=== PATIENT | female | born 1945 | race Caucasian/White ===

== ENCOUNTER → 2025-05-26 10:23 | Outpatient (REF) | payer MEDICARE, OTHER, SELFPAY ==
[2025-05-26 12:00] LABS: Hematocrit 34.3 % (37.0-47.0); Hemoglobin 11.6 g/dL (12.0-16.0); Mean Corp Hgb Conc. 33.8 g/dL (33.0-37.0); Mean Corpuscular Volume 89.3 fL (81.0-99.0); Nucleated Red Blood Cells % 0 %; Platelet Count 239 10^3/uL (130-400); Red Cell Dist. Width 13.0 % (11.5-14.5)
[2025-05-26 12:15] LABS: INR 0.96; PT 13.3 Sec (11.4-14.6)
[2025-05-26 12:32] LABS: ALT (SGPT) 260 U/L (0-35); AST (SGOT) 65 U/L (14-36); Albumin 4.3 g/dl (3.5-5.0); Alkaline Phosphatase 180 U/L (38-126); Blood Urea Nitrogen 26 mg/dl (7-17); Calcium 9.1 mg/dl (8.4-10.2); Carbon Dioxide 28 mmol/L (22-30); Chloride 97 mmol/L (98-107); Glucose 88 mg/dl (70-99); Magnesium 2.0 mg/dl (1.6-2.3); Potassium 5.1 mmol/L (3.5-5.1); Sodium 132 mmol/L (135-145); Total Protein 7.2 g/dl (6.3-8.2); eGFR > 60.00
== END ==
LOC: SDSPAT 10:23
PROVIDERS: ATTENDING PHYSICIAN Internal Medicine Cardiovascular Disease; FAMILY PHYSICIAN Nurse Practitioner Adult Health; OTHER PHYSICIAN Internal Medicine Cardiovascular Disease
DX: I48.0 Paroxysmal atrial fibrillation (principal)
CPT/HCPCS: 36415; 75572; 80053; 83735; 85025; 85610; 86850; 86900; 86901; 93005; Q9967

== ENCOUNTER → 2025-06-08 14:14 | Outpatient (REF) | payer MEDICARE, OTHER, SELFPAY ==
[2025-06-08 16:44] LABS: ALT (SGPT) 126 U/L (0-35); AST (SGOT) 78 U/L (14-36); Albumin 4.6 g/dl (3.5-5.0); Alkaline Phosphatase 118 U/L (38-126); Total Protein 7.5 g/dl (6.3-8.2)
== END ==
LOC: REG 14:14
PROVIDERS: ATTENDING PHYSICIAN Physician Assistant; FAMILY PHYSICIAN Nurse Practitioner Adult Health; OTHER PHYSICIAN Internal Medicine Cardiovascular Disease
DX: R94.5 Abnormal results of liver function studies (principal)
CPT/HCPCS: 36415; 80076

== ENCOUNTER 2025-06-15 06:07 | Day surgery (SDC) | payer MEDICARE, OTHER, SELFPAY ==
[2025-05-26 10:38] VITALS: BMI 30.3
[2025-06-15] VITALS (13 sets, daily range): BP systolic 127–168; BP diastolic 50–75
[2025-06-15 07:23] LABS: ALT (SGPT) 117 U/L (0-35); AST (SGOT) 50 U/L (14-36); Albumin 4.2 g/dl (3.5-5.0); Alkaline Phosphatase 132 U/L (38-126); Blood Urea Nitrogen 14 mg/dl (7-17); Calcium 9.0 mg/dl (8.4-10.2); Carbon Dioxide 28 mmol/L (22-30); Chloride 100 mmol/L (98-107); Estimated Creatinine Clearance 62 ml/min; Glucose 91 mg/dl (70-99); Potassium 4.0 mmol/L (3.5-5.1); Sodium 132 mmol/L (135-145); Total Protein 7.0 g/dl (6.3-8.2); eGFR > 60.00
[2025-06-15 09:10] LABS: ACT-LR - POC 221 Seconds (116-155)
[2025-06-15 09:24] LABS: ACT-LR - POC 269 Seconds (116-155)
--- NOTE | 2025-06-15 09:39 | ITS.CL.ABL ---
Agency Appointments Supervisor - Ablation
Ablation
Procedure Report:
ELECTROPHYSIOLOGY ABLATION STUDY
DATE:: June 15, 2025�����������������������������REFERRING: Dr. Baez
INDICATION: Paroxysmal supraventricular tachycardia in the form of atrial fibrillation.��As above
HISTORY: See H and P.��As above
ANTIARRHYTHMIC DRUG: Amiodarone
PRE-PROCEDURE CHEN: No intracardiac thrombus
PRESENTING RHYTHM: Sinus rhythm
'TIME-OUT':��called and confirmed.
SEDATION/ANESTHESIA:��provided via the anesthesia department using general anesthesia (LMA).
INTRAVENOUS/ARTERIAL ACCESS:
Right femoral venous -8Fr
Left femoral venous - 8 Fr, 6 Fr
[id number] sutures bilaterally to right femoral and left femoral venous access
Ultrasound guidance for bilateral femoral vein access was utilized by me to obtain access with demonstration of normal anatomy
CHADS-VASC Score:
HAS-Bled Score
PROCEDURE:
1.��A decapolar CS catheter was placed within the CS for mapping and pacing.��This was also used as the reference catheter for the 3-D map. There is extremely tortuous IVC RA junction which required ice navigation of catheters into the right atrium
otherwise once that was established transseptal puncture and navigation of the left atrium was relatively straightforward. Ultimately a straight Amplatz wire in front of the [address] sheath under ice guidance achieved right atrial access and was
exchanged for the RF wire after the Amplatz and [address] sheath were placed in the SVC/RA junction.
2. The intracardiac ultrasound catheter was positioned in the RA to identify the FO for targeting of transseptal puncture, assist��in identification of the pulmonary vein ostia, monitoring pre and post ablation pulmonary vein flow velocities,
monitoring for 'bubble' formation during RF application as a sign of thermal injury,��and to monitor for pericardial effusion during mapping and ablation procedure.���Left atrial size, LV ejection fraction, and pulmonary vein flows were monitored
pre and post ablation procedure. The other valves were inspected and found to be free of significant regurgitation or stenosis.
3.��Half of the calculated heparin bolus was administered prior to the first transeptal puncture.��Transseptal puncture was performed to diagnose RA and LA pressure so that safety of LA mapping and ablation could be further assessed, and to access
the left atrium and pulmonary veins for mapping and ablation.��This entailed advancing an 8 Fr SL-1 sheath with dilator into the superior vena cava and withdrawing both (monitoring intracardiac ultrasound, fluoroscopy and tip pressure) with the tip
oriented toward the atrial septum.��The fossa ovalis was engaged (indicated by sudden displacement of the sheath tip as well as tenting of the fossa seen on intracardiac ultrasound).��Left atrial access required a pass with the [place] needle
extended.��Left atrial catheter position was confirmed by pressure monitoring (RA mean pressure 4 mm Hg and LA mean presure 6 mm Hg), LA saturation (99%) and for the mean pressure of 6 mmHg in the left atrium this was answered with 750 cc of
hydration,��as well as fluoroscopy.��The sheath was advanced over the dilator and positioned in the left atrium.��This procedure was repeated for the Agilis sheath.��The remainder of the calculated heparin bolus was administered and heparin was
infused to maintain ACT at 300 -350 seconds throughout the case.
4.��RA pacing was performed via the proximal decapolar poles and LA pacing was performed via the distal decapolr poles.
5. A quadrapolar catheter was first positioned at the His position for His Bundle recording which was tagged via the 3-D Navex sytem, and then passed to the RVA for RV pacing and recording.
6. The Penta spline and grid catheter were placed in each of the LIPV, LSPV, RSPV and the RIPV.��Anomalous right middle pulmonary vein noted. The right inferior pulmonary vein takeoff was extremely inferior and posterior.
7.��Next, a 3-D map was created using Navex.���A 3-D reconstructed CT image was compared to the 3-D Navex map to assist in anatomic interpretation, mapping and ablation.��The CT image and the NavX image were fused.
8. A total of 52 lesions were utilized in basket and all of pose for the 5 pulmonary veins with basket only for the right middle pulmonary vein and flower pose to each of the pulmonary veins roof posterior wall and floor the left atrium.
9. Normal sinus node and AV node function noted.
TOTAL FLOURO TIME: 12.1 minutes
TOTAL RF DURATION: 0 minutes
REVERSAL OF HEPARIN: 30 mg of protamine, slow IV administration
COMPLICATIONS:
None
Intracardiac US shows no pericardial effusion post ablation.
SUMMARY:��
Complex left atrial mapping and ablation.
Isolation of all 5 pulmonary veins as well as the roof posterior wall and floor of the left atrium. Noninducible for any other tachyarrhythmia.
RECOMMENDATIONS:
1. Admit to monitored bed.
2. Resume anticoagulation
3.��Discontinue amiodarone
4.� Out of bed in 4 hours and consider same-day discharge
Copy to: Dr. Baez
--- NOTE | 2025-06-15 15:28 | W.PN.UPDATE ---
Update Note
Progress Note Update
80 yo WF s/p PVI (same day). She denies cp, sob, anna diet, voiding, amb w/o dizziness, EKG SR, b/l groins c/d/i no HT, soft. She will resume Xarelto and continue metoprolol. She will stop Amiodarone and continue to hold atorvastatin until repeat
LFT's done as they are trending down while being off. She will f/u PCP regarding LFT's. Activity restrictions reviewed. She is for d/c home after 230p
== END 2025-06-15 15:05 | disposition home or self-care (01) ==
LOC: CATH 06:07
PROVIDERS: ATTENDING PHYSICIAN Internal Medicine Cardiovascular Disease; FAMILY PHYSICIAN Nurse Practitioner Adult Health; OTHER PHYSICIAN Internal Medicine Interventional Cardiology
DX: I48.0 Paroxysmal atrial fibrillation (principal); Z79.899 Other long term (current) drug therapy; I10 Essential (primary) hypertension; E03.9 Hypothyroidism, unspecified; E66.9 Obesity, unspecified; E78.5 Hyperlipidemia, unspecified; F41.9 Anxiety disorder, unspecified; I08.1 Rheumatic disorders of both mitral and tricuspid valves; I25.10 Atherosclerotic heart disease of native coronary artery without angina pectoris; I27.20 Pulmonary hypertension, unspecified; I47.10 Supraventricular tachycardia, unspecified; K22.5 Diverticulum of esophagus, acquired; M19.90 Unspecified osteoarthritis, unspecified site; M85.80 Other specified disorders of bone density and structure, unspecified site; Z68.30 Body mass index [BMI] 30.0-30.9, adult; Z79.01 Long term (current) use of anticoagulants; Z79.890 Hormone replacement therapy; Z85.3 Personal history of malignant neoplasm of breast; Z91.048 Other nonmedicinal substance allergy status; Z92.21 Personal history of antineoplastic chemotherapy; R74.01 Elevation of levels of liver transaminase levels; D50.9 Iron deficiency anemia, unspecified; E87.1 Hypo-osmolality and hyponatremia; I89.0 Lymphedema, not elsewhere classified
CPT/HCPCS: 80053; 85347; 86900; 86901; 93005; 93656; 93657; C1730; C1732; C1733; C1759; C1766; C1769; C1892; C1894